=== PATIENT | female | born 1950 | race Caucasian/White ===

== ENCOUNTER 2020-03-15 08:48 | Day surgery (SDC) | payer MEDICARE, OTHER ==
[2020-03-15] VITALS (8 sets, daily range): BP systolic 107–134; BP diastolic 55–74
[~2020-03-15] VITALS: Ht 157.5 cm; Wt 46.0 kg
[2020-03-15 10:39] LABS: BASOPHILS # (AUTO) 0.1 X10'3 (0-0.2); BASOPHILS % (AUTO) 0.6 % (0-1); EOSINOPHILS % (AUTO) 0.1 % (0-6); HEMATOCRIT 34.7 % (35.0-45.0); LYMPHOCYTES # (AUTO) 0.7 X10'3 (1.1-4.8); LYMPHOCYTES % (AUTO) 6.1 % (21-51); MEAN CORPUSCULAR HGB CONC 31.7 g/dL (33.0-36.5); MEAN CORPUSCULAR VOLUME 85.2 FL (78-98); MEAN PLATELET VOLUME 7.4 FL (7.4-10.4); MONOCYTES # (AUTO) 0.9 X10'3 (0-0.9); MONOCYTES % (AUTO) 8.2 % (2-12); NEUTROPHILS # (AUTO) 9.7 X10'3 (1.8-7.7); PLATELET COUNT 542 X10'3 (140-440); RED BLOOD COUNT 4.07 X10'6 (4.20-5.60); RED CELL DISTRIBUTION WIDTH 17.2 % (11.5-14.5); WHITE BLOOD COUNT 11.4 X10'3 (4.5-11.0)
[2020-03-15] MEDS ORDERED: ALBU6.7H9 INH (10:46)
[2020-03-15] MEDS ORDERED: HYDR-3972 PO (10:46)
[2020-03-15] MEDS ORDERED: TIOT18CA3 INH (10:46)
[2020-03-15] MEDS ORDERED: MELO-102 PO (10:46)
[2020-03-15] MEDS ORDERED: TRAZ-251 PO (10:46)
[2020-03-15] MEDS ORDERED: FLO110IN INH (10:46)
[2020-03-15] MEDS ORDERED: BACL10TA2 PO (10:46)
[2020-03-15] MEDS ORDERED: midazolam 2 mg/2 ml injection ONE (11:06)
[2020-03-15] MEDS ORDERED: fentaNYL/PF 50MCG/1 ML 2ML syringe ONE (11:06)
[2020-03-15] MEDS ORDERED: HYDROcodone/acetaminophen 10/325mg tab PO ONE (11:40)
[2020-03-15] MEDS ORDERED: HYDROcodone/acetaminophen 5mg/325mg tablet PO PRN ×2 (11:45)
== END 2020-03-15 13:50 | disposition home or self-care (01) ==
LOC: SSTAY O 08:48
PROVIDERS: ATTEND Radiology Diagnostic Radiology
DX: R91.8 Other nonspecific abnormal finding of lung field (principal); C34.11 Malignant neoplasm of upper lobe, right bronchus or lung; Z79.899 Other long term (current) drug therapy
CPT/HCPCS: 32405; 36415; 71045; 77012; 85025; 99152; 99153; J2250; J3010

== ENCOUNTER 2020-10-29 11:31 | Day surgery (SDC) | payer MEDICARE, OTHER ==
[~2020-10-29] VITALS: Ht 152.4 cm; Wt 39.6 kg
[2020-10-29] VITALS (7 sets, daily range): BP systolic 96–107; BP diastolic 51–67
[~2020-10-29 11:31] MED LIST: ALBU6.7H9 INH; BACL10TA2 PO; FLO110IN INH; HYDR-3972 PO; MELO-102 PO; TIOT18CA3 INH; TRAZ-251 PO
[2020-10-29] MEDS ORDERED: albumin 25% 100mL bottle x 1 IV PRN (12:05)
[2020-10-29] MEDS ORDERED: OXYC5CAP19 PO (12:11)
[2020-10-29] MEDS ORDERED: fentaNYL/PF 50MCG/1 ML 2ML syringe ONE (12:42)
[2020-10-29] MEDS ORDERED: midazolam 1 mg/ML 2ml injection ONE (12:42)
[2020-10-29] MEDS ORDERED: iohexol 300 MG/1 ML 50ml polymer ONE (12:51)
[2020-10-29] MEDS ORDERED: tPA-cathflo 2 MG/2 ml IV flush ONE (13:20)
[2020-10-29] MEDS ORDERED: heparin sodium, porcine/PF 100unit/ml 5ML syringe IV ONE (14:25)
== END 2020-10-29 15:00 | disposition home or self-care (01) ==
LOC: SSTAY O 11:31
PROVIDERS: ATTEND Radiology Vascular & Interventional Radiology
DX: T82.598A Other mechanical complication of other cardiac and vascular devices and implants, initial encounter (principal); C34.92 Malignant neoplasm of unspecified part of left bronchus or lung; G47.00 Insomnia, unspecified; J44.9 Chronic obstructive pulmonary disease, unspecified; D50.8 Other iron deficiency anemias; E83.52 Hypercalcemia; D64.81 Anemia due to antineoplastic chemotherapy; Z90.49 Acquired absence of other specified parts of digestive tract; Z98.890 Other specified postprocedural states; Z81.8 Family history of other mental and behavioral disorders; Z82.49 Family history of ischemic heart disease and other diseases of the circulatory system; Z87.891 Personal history of nicotine dependence; Y83.8 Other surgical procedures as the cause of abnormal reaction of the patient, or of later complication, without mention of misadventure at the time of the procedure; Y92.89 Other specified places as the place of occurrence of the external cause
CPT/HCPCS: 36593; 36598; J1642; J2250; J2997; J3010; Q9967